=== PATIENT | male | born 1980 | race Caucasian/White ===

== ENCOUNTER → 2018-11-06 | Day surgery (SDC) | payer OTHER ==
[~2018-11-06] MED LIST: DICYCLOMINE HCL20 MG PO; FENTANYL CITRATE/PF 100MCG/2 ML INJ ONE; HYOSCYAMINE 0.125 MG TAB ONE; MIDAZOLAM HCL 2 MG/2 ML VIAL ONE; MORPHINE SULFATE INJ 4 MG/ML INJ 1ML ONE; OMEPRAZOLE40 MG PO; PROPOFOL IV EMULSION 10 MG/ML 50 ML VIAL ONE
--- OUTSIDE RECORDS SUMMARY | 2018-11-06 11:04 | XMS REPORT | Summary of Care ---
Author Author [facility] - Health Organization [facility] - Health Address Unknown Phone Unavailable Care Team Providers Care Fur Liner Name Role Phone Pcp, Patient Does Not Have A PCP Reason for Referral * (ROSANNA) Referred By Contact Referred To Contact Status Reason Specialty Diagnoses / Procedures Nani Solis, EDITOR MAP [address] [place] [address] New Request IM-GASTROENTEROL Diagnoses OGY Epigastric pain Acute gastritis without hemorrhage, unspecified gastritis type P rocedures Discharge Follow-Up: Specialty Service IM-GASTROENTEROLOG Y; 3-5 Days * MRI/CAT Scan (STAT) Referred By Contact Referred To Contact Status Reason Specialty Diagnoses / Procedures IrmaNani, EDITOR MAP [address] [place] [address] New Request Diagnostic Diagnoses Radiology Epigastric pain P rocedures CT ABDOMEN PELVIS W CONTRAST * MRI/CAT Scan (STAT) Referred By Contact Referred To Contact Status Reason Specialty Diagnoses / Procedures IrmaJoselineise, EDITOR MAP [address] [place] [address] New Request Diagnostic Diagnoses Radiology Epigastric pain P rocedures CT ABDOMEN PELVIS W CONTRAST * Radiology Services (STAT) Referred By Contact Referred To Contact Status Reason Specialty Diagnoses / Procedures IrmaNani, EDITOR MAP [address] [place] [address] New Request Diagnostic Diagnoses Radiology Epigastric pain P rocedures Chest 2 Views * Radiology Services (STAT) Referred By Contact Referred To Contact Status Reason Specialty Diagnoses / Procedures IrmaNani, EDITOR MAP [address] [place] [address] New Request Diagnostic Diagnoses Radiology Epigastric pain P rocedures Chest 2 Views Reason for Visit * Reason Comments Shortness of Breath Chest Pain * Auth/Cert Referred By Contact Referred To Contact Status Reason Specialty Diagnoses / Procedures [facility] Emergency Dept [address] [place] [phone] Emergency Medicine Encounter Details Care Team Description Date Type Department Nani Solis, EDITOR MAP [address] [place] [address] [phone] Acute gastritis without hemorrhage, unspecified gastritis type (Primary Dx); Epigastric pain 10/01/2018 Emergency [facility]Emergency Department [address] [place] [phone] Allergies Comments Active Allergy Reactions Severity Noted Date Amoxicillin Swelling 10/01/2018 Codeine Swelling 10/01/2018 Sulfa (Sulfonamide Swelling 10/01/2018 Antibiotics) documented as of this encounter (statuses as of 10/01/2018) Medications End Date Status Medication Sig Dispensed Refills Start Date Active dicyclomine 20 mg Take 1 tablet 20 tablet 0 tabletIndications: Acute by mouth 4 9 gastritis without (four) times hemorrhage, unspecified daily as gastritis type needed for Abdominal pain. 10/31/2018 Active omeprazole 20 mg Take 1 30 capsule 0 capsuleIndications: Acute capsule by 9 gastritis without mouth daily hemorrhage, unspecified for 30 days. gastritis type documented as of this encounter (statuses as of 10/01/2018) Active Problems No known active problemsdocumented as of this encounter (statuses as of 10/01/2018) Social History Date Tobacco Use Types Packs/Day Years Used Never Assessed Sex Assigned at Date Recorded Not on file Industry Job Start Date Occupation Not on file Not on file Not on file Travel End Travel History Travel Start No recent travel history available. documented as of this encounter Last Filed Vital Signs Reading Time Taken Comments Vital Sign 107/75 10/01/2018 4:07 PM CDT Blood Pressure 55 10/01/2018 4:07 PM CDT Pulse 36.7 C (98.1 F) 10/01/2018 4:07 PM CDT Temperature 12 10/01/2018 4:07 PM CDT Respiratory Rate 100% 10/01/2018 4:07 PM CDT Oxygen Saturation - - Inhaled Oxygen Concentration 77.1 kg (170 lb) 10/01/2018 12:51 PM CDT Weight - - Height - - Body Mass Index documented in this encounter Discharge Instructions * Instructions* Nani Solis FNP - 10/01/2018 RECOMMEND FOLLOW-UP WITH A PRIMARY CARE PROVIDER OR SPECIALIST IN 2-5 DAYS, [facility]Y IF NO IMPROVEMENT IN SYMPTOMS. MAY FOLLOW-UP WITH A PROVIDER OF YOUR CHOICE, SUCH : 1. A PHYSICIAN OF YOUR CHOICE 2. [address] [place] [address]; 3. [facility], [address] [place] [address]; [phone] 1 OR, IF YOU WISH TO FOLLOW-UP WITHIN THE [facility], MAY TRY THESE OP TIONS (CLINIC APPOINTMENTS AVAILABLE ON ZILY-OO-AFXJ BASIS): 1. SCHEDULE AN APPOINTMENT ONLINE AT WWW[facility] 2. OR CALL THE [facility] AT OR 3. OR CALL YOUR [facility] PHYSICIAN'S OFFICE DIRECTLY IF YOU ARE ALREADY AN ESTABLISH ED [facility] PATIENT. RETURN TO ER FOR WORSENING OF SYMPTOMS. * Attachments The following attachments cannot be sent through Care Everywhere.* Gastritis (Adult) (Mongolian) documented in this encounter Plan of Treatment Health Maintenance Due Date Last Done Comments VARICELLA VACCINES (1 of 1993 2 - 13+ 2-dose series) DTaP,Tdap,and Td Vaccines 08/28/1999 (1 - Tdap) INFLUENZA VACCINE (#1) 2018 PNEUMOCOCCAL 0-64 YEARS Aged Out No longer eligible based COMBINED SERIES on patient's age to complete this topic documented as of this encounter Procedures Comments Procedure Name Priority Date/Time Associated Diagnosis CT ABDOMEN PELVIS W STAT 10/01/2018 Epigastric pain CONTRAST 3:29 PM CDT CBC WITH DIFFERENTIAL STAT 10/01/2018 Epigastric pain 2:30 PM CDT N-TERMINAL PRO-BNP STAT 10/01/2018 Epigastric pain 2:30 PM CDT CBC WITH DIFF Routine 10/01/2018 Epigastric pain 2:30 PM CDT BASIC METABOLIC PANEL STAT 10/01/2018 Epigastric pain (NA, K, CL, CO2, GLUCOSE, 2:30 PM CDT BUN, CREATININE, CA) HEPATIC FUNCTION PANEL STAT 10/01/2018 Epigastric pain (79615) (ALB,T.PRO,BILI 2:30 PM CDT T,BU/BC,ALT,AST,ALK PHOS) TROPONIN I STAT 10/01/2018 Epigastric pain 2:30 PM CDT LIPASE STAT 10/01/2018 Epigastric pain 2:30 PM CDT URINALYSIS STAT 10/01/2018 Epigastric pain 2:26 PM CDT XR CHEST 2 VW STAT 10/01/2018 Epigastric pain 1:57 PM CDT EKG-12 LEAD STAT 10/01/2018 12:58 PM CDT documented in this encounter Results * CT ABDOMEN PELVIS W CONTRAST (10/01/2018 3:29 PM CDT) Specimen Impressions Performed At Right lower lobe supradiaphragmatic focal consolidation, likely represent PACS/VR/DOSE clearing pneumonia. Follow-up in 6-8 weeks after appropriate treatment is recommended. Shana Vaca MD., have reviewed this study and agree with the above report. Narrative Performed At * * * * * * * * ORIGINAL REPORT * * * * * * * * PACS/VR/DOSE EXAM: CT ABDOMEN AND PELVIS WITH CONTRAST HISTORY: Abd infection (incl peritonitis) COMPARISON: None. TECHNIQUE AND FINDINGS: Contiguous axial imaging from the level of the lung bases through the pubic symphysis was performed after the uncomplicated administration of 120 cc of intravenous Omnipaque contrast. Coronal and sagittal reconstructions were obtained.Auto mA and/or iterative reconstruction were used to reduce radiation dose. FINDINGS: LOWER THORAX: Right lower lobe supradiaphragmatic airspace opacity is seen measuring 1.1 cm.No cardiomegaly. LIVER: Approximately 7 mm low-density lesion in segment 6 is too small to be characterized by CT scan, probably small cyst. Normal contour. GALLBLADDER AND BILIARY TREE: No gallbladder wall thickening. No biliary dilatation. PANCREAS: No ductal dilation or masses. SPLEEN: No splenomegaly. ADRENAL GLANDS: No adrenal nodules. KIDNEYS: No hydronephrosis, stones, or masses. PELVIS/BLADDER: Unremarkable. GI TRACT: No dilation or wall thickening. The visualized portions of the appendix are normal. VESSELS: Unremarkable. LYMPH NODES: No lymphadenopathy. PERITONEUM AND RETROPERITONEUM: No free air or fluid. BONES AND SOFT TISSUES: No suspicious lytic or sclerotic bony lesions. A 7 mm right iliac bone island is noted (3:92). Procedure Note [facility], Radiant Results Inft User - 10/01/2018 4:03 PM CDT * * * * * * * * ORIGINAL REPORT * * * * * * * * EXAM: CT ABDOMEN AND PELVIS WITH CONTRAST HISTORY: Abd infection (incl peritonitis) COMPARISON: None. TECHNIQUE AND FINDINGS: Contiguous axial imaging from the level of the lung bases through the pubic symphysis was performed after the uncomplicated administration of 120 cc of intravenous Omnipaque contrast. Coronal and sagittal reconstructions were obtained. Auto mA and/or iterative reconstruction were used to reduce radiation dose. FINDINGS: LOWER THORAX: Right lower lobe supradiaphragmatic airspace opacity is seen measuring 1.1 cm. No cardiomegaly. LIVER: Approximately 7 mm low-density lesion in segment 6 is too small to be characterized by CT scan, probably small cyst. Normal contour. GALLBLADDER AND BILIARY TREE: No gallbladder wall thickening. No biliary dilatation. PANCREAS: No ductal dilation or masses. SPLEEN: No splenomegaly. ADRENAL GLANDS: No adrenal nodules. KIDNEYS: No hydronephrosis, stones, or masses. PELVIS/BLADDER: Unremarkable. GI TRACT: No dilation or wall thickening. The visualized portions of the appendix are normal. VESSELS: Unremarkable. LYMPH NODES: No lymphadenopathy. PERITONEUM AND RETROPERITONEUM: No free air or fluid. BONES AND SOFT TISSUES: No suspicious lytic or sclerotic bony lesions. A 7 mm right iliac bone island is noted (3:92). IMPRESSION Right lower lobe supradiaphragmatic focal consolidation, likely represent clearing pneumonia. Follow-up in 6-8 weeks after appropriate treatment is recommended. Clifford Vaca MD., have reviewed this study and agree with the above report. Performing Organization Address City/State/Zipcode Phone Number PACS/VR/DOSE * CBC WITH DIFFERENTIAL (10/01/2018 2:30 PM CDT) WBC 6.39 4.20 - 10.70 [facility] 10*3/L [facility] RBC 4.83 4.26 - 5.52 10*6/L [facility] HGB 15.2 12.2 - 16.4 g/dL [facility] HCT 44.1 38.4 - 49.3 % [facility] MCV 91.3 81.7 - 95.6 fL [facility] MCH 31.5 26.1 - 32.7 pg [facility] MCHC 34.5 31.2 - 35.0 g/dL [facility] RDW-SD 40.6 38.5 - 51.6 fL [facility] RDW-CV 12.0 (L) 12.1 - 15.4 % [facility] PLT 228 150 - 328 10*3/L [facility] MPV 9.3 (L) 9.8 - 13.0 fL [facility] NRBC/100 WBC 0.0 0.0 - 10.0 /100 WBCs [facility] NRBC x10^3 <0.01 10*3/L [facility] GRAN MAT (NEUT) 62.4 % [facility] % [facility] IMM GRAN % 0.20 % [facility] LYMPH % 26.6 % [facility] MONO % 8.1 % [facility] EOS % 2.2 % [facility] BASO % 0.5 % [facility] GRAN MAT 3.99 1.99 - 6.95 10*3/uL [facility] x10^3(ANC) [facility] IMM GRAN x10^3 <0.03 0.00 - 0.06 10*3/uL [facility] LYMPH x10^3 1.70 1.09 - 3.23 10*3/uL [facility] MONO x10^3 0.52 0.36 - 1.02 10*3/uL [facility] EOS x10^3 0.14 0.06 - 0.53 10*3/uL [facility] BASO x10^3 0.03 0.01 - 0.09 10*3/uL [facility] Specimen Blood - VENOUS Performing Organization Address City/State/Zipcode Phone Number [facility] CLIA: [id number], [address] [place] [phone] [facility] * N-TERMINAL PRO-BNP (10/01/2018 2:30 PM CDT) NT-proBNP 287 (H) <=125 pg/mL [facility] Specimen Blood - VENOUS Narrative Performed At Biotin has been reported to cause a negative bias, interpret results relative to [facility] patient's use of biotin. [facility] Performing Organization Address City/State/Zipcode Phone Number [facility] CLIA: [id number], [address] [place] [phone] [facility] * Troponin I (10/01/2018 2:30 PM CDT) TROPONIN I 0.002 <=0.034 ng/mL [facility] Specimen Blood - VENOUS Narrative Performed At Equal or Less than 0.034 ng/ml---Normal [facility] Note: Cardiac troponin begins to rise 3-4 hours after the onset of ischemia. [facility] Repeat in 4-6 hours if the sample was drawn within 3-4 hours of the onset of the [place] symptom and found normal. Between 0.035 and 0.120 ng/mL--- Borderline. Questionable myocardial injury or necrosis Note: Serial measurement may be necessary to confirm or exclude the diagnosis of myocardial injury or necrosis; Clinical correlation (symptoms, EKGs, imaging studies, and others) required; Repeat in 4-6 hours if clinically indicated. Equal or Higher than 0.121 ng/mL---Abnormal. Myocardial Injury or Necrosis Likely Biotin has been reported to cause a negative bias, interpret results relative to patient's use of biotin. Performing Organization Address City/State/Zipcode Phone Number [facility] CLIA: [id number], [address] [place] [phone] [facility] * Lipase Serum (10/01/2018 2:30 PM CDT) Pathologist [facility] LIPASE 122 0 - 220 U/L [facility] Specimen Blood - VENOUS Performing Organization Address [facility] Phone Number [facility] CLIA: [id number], [address] [place] [phone] [facility] * Hepatic Function Panel (ALB, T.PRO, BILI T, BU/BC, ALT, AST, ALK PHOS) (10/01/2018 2:30 PM CDT) TOTAL BILI 0.5 0.1 - 1.1 mg/dL [facility] BILI UNCON 0.4 0.1 - 1.1 mg/dL [facility] BILI CONJ 0.0 0.0 - 0.3 mg/dL [facility] T PROTEIN 7.7 6.3 - 8.2 g/dL [facility] ALBUMIN 4.6 3.5 - 5.0 g/dL [facility] ALK PHOS 59 34 - 122 U/L [facility] ALT(SGPT) 27 9 - 51 U/L [facility] AST(SGOT) 24 13 - 40 U/L [facility] Specimen Blood - VENOUS Performing Organization Address City/[facility] Cent[facility]ode Phone Number [facility] CLIA: [id number], [address] [place] [phone] [facility] * Basic Metabolic Panel (NA, K, CL, CO2, GLUCOSE, BUN, CREATININE, CA) (10/01/2018 2:30 PM CDT) NA 144 135 - 145 mmol/L [facility] K 4.3 3.5 - 5.0 mmol/L [facility] CL 105 98 - 108 mmol/L [facility] CO2 TOTAL 28 23 - 31 mmol/L [facility] AGAP 11 2 - 16 [facility] BUN 11 7 - 23 mg/dL [facility] GLUCOSE 90 70 - 110 mg/dL [facility] CREATININE 0.82 0.60 - 1.25 mg/dL [facility] CALCIUM 9.8 8.6 - 10.6 mg/dL [facility] eGFR 105.1 mL/min/1.73m2 [facility] Calculation [facility] (Non-[facility] [place]) eGFR 127.4 mL/min/1.73m2 [facility] Calculation [facility] ([facility] [place]) Specimen Blood - VENOUS Narrative Performed At [facility] of Glomerular Filtration Rate (GFR) and Staging of Kidney Disease* [facility] + + + + [facility] | GFR (mL/min/1.73 m2)| With Kidney Damage|Without Kidney Damage CAMPUS + + + + |>90|Stage one| Normal + + + + |60-89|Stage two| Decreased GFR + + + + |30-59|Stage three| Stage three + + + + |15-29|Stage four | Stage four + + + + |<15 (or dialysis)|Stage five | Stage five + + + + *Each stage assumes the associated GFR level has been in effect for at least three months.Stages 1 to 5, with or without kidney disease, indicate chronic kidney disease. Notes: Determination of stages one and two (with eGFR >59mL/min/1.73 m2) requires estimation of kidney damage for at least three months as defined by structural or functional abnormalities of the kidney, manifested by either: Pathological abnormalities or Markers of kidney damage (including abnormalities in the composition of the blood or urine or abnormalities in imaging tests). Performing Organization Address City/State/Zipcode Phone Number [facility] CLIA: [id number], [address] [place] [address] [facility] * Urinalysis (10/01/2018 2:26 PM CDT) APPEARANCE Clear Clear [facility] COLOR Straw (A) Yellow [facility] PH 7.0 4.8 - 8.0 [facility] SP GRAVITY 1.009 1.003 - 1.030 [facility] GLU U QUAL Normal Normal [facility] BLOOD [facility] Negative [facility] KETONES Negative Negative [facility] PROTEIN Negative Negative [facility] UROBILIN Normal Normal [facility] BILIRUBIN Negative Negative [facility] NITRITE Negative Negative [facility] LEUK JUSTIN Negative Negative [facility] RBC/HPF 2 0 - 3 HPF [facility] WBC/HPF 1 0 - 5 HPF [facility] BACTERIA Negative Negative [facility] MUCOUS Slight (A) Negative LPF [facility] SQ EPITH 1 <=2 HPF [facility] Specimen Urine - URINE, CLEAN CATCH Performing Organization Address City/State/Zipcode Phone Number [facility] CLIA: [id number], [address] [place] [phone] [facility] * Chest 2 Views (10/01/2018 1:57 PM CDT) Specimen Impressions Performed At No acute intrathoracic abnormality. PACS/VR/DOSE Praveen Vaca MD., have reviewed this study and agree with the above report. Narrative Performed At * * * * * * * * ORIGINAL REPORT * * * * * * * * PACS/VR/DOSE PROCEDURE: XR CHEST 2 VW CLINICAL INDICATION: shortness of breath, rececnt dx of PNA COMPARISON: None FINDINGS: The lungs are clear. No pleural effusion or pneumothorax is seen. The heart is normal in size. No acute bony abnormality. Procedure Note [facility], Radiant Results Inft User - 10/01/2018 2:27 PM CDT * * * * * * * * ORIGINAL REPORT * * * * * * * * PROCEDURE: XR CHEST 2 VW CLINICAL INDICATION: shortness of breath, rececnt dx of PNA COMPARISON: None FINDINGS: The lungs are clear. No pleural effusion or pneumothorax is seen. The heart is normal in size. No acute bony abnormality. IMPRESSION No acute intrathoracic abnormality. I, Marcus Agosto MD., have reviewed this study and agree with the above report. Performing Organization Address City/State/Zipcode Phone Number PACS/VR/DOSE documented in this encounter Visit Diagnoses Diagnosis Acute gastritis without hemorrhage, unspecified gastritis type - Primary Epigastric pain Abdominal pain, epigastric documented in this encounter Administered Medications Action Date Dose Rate Site Medication Order [facility] [place] 10/01/2018 3:00 PM CDT 30 mg ketorolac (TORADOL) injection 30 mg Given 30 mg, Slow IV Push, Q6H, 4 doses, First dose on Sat10/01/18 at 1800, Last dose on Sat10/02/18 at 1200, Routine, fast food crew member approving Restricted medication: TULIO ROMERO Action Date Dose Rate Site Medication Order [facility] [place] 10/01/2018 3:08 PM CDT 20 mg Left Dorsogluteal-IM dicyclomine (BENTYL) injection 20 mg Given 20 mg, Intramuscular, ONCE, 1 dose, Sat10/01/18 at 1600, [facility] 10/01/2018 2:57 PM CDT 20 mg famotidine (PEPCID (PF)) injection 20 mg Given 20 mg, Slow IV Push, ONCE, 1 dose, Sat10/01/18 at 1600, [facility] 10/01/2018 3:20 PM CDT 100 mL iohexol (OMNIPAQUE 350 BULK-100 mL) Given injection 100 mL 100 mL, Intravenous, ONCE, 1 dose, Sat10/01/18 at 1515, Routine 10/01/2018 2:56 PM CDT 15 mL maalox:diphenhydrAMINE:lidocaine2 Given %viscous 1:1:1: suspension (COMPOUNDED) 15 mL, Oral, ONCE, 1 dose, Sat10/01/18 at 1600, Routine 10/01/2018 2:56 PM CDT 1,000 mL 999 mL/hr NaCl 0.9% (NS) bolus infusion 1,000 mL New Bag at 999 mL/hr, 1,000 mL, IV Infusion, ONCE, 1 dose, Sat10/01/18 at 1600, STAT 10/01/2018 2:58 PM CDT 4 mg ondansetron (ZOFRAN (PF)) injection 4 mg Given 4 mg, Slow IV Push, ONCE, 1 dose, Sat10/01/18 at 1600, ROSANNA documented in this encounter"
--- OUTSIDE RECORDS SUMMARY | 2018-11-06 11:04 | XMS REPORT | Encounter Summary ---
Author Organization Unknown Address [address] [place] [address] Phone [phone] Reason for Visit Medical Complaint; tongue sensations, sore throat, tooth pain Instructions 1. Dental caries clindamycin 300 mg capsule 2. Gingivitis chlorhexidine gluconate 0.12 % mouthwash rapid strep group A, throat Discussion Note: None recorded. Patient educational handouts: No information available. Plan of Care Patient Instructions Take meds as prescribed. Follow up with dentist for possible tooth extraction. Reminders Provider Appointments None recorded. Lab Rapid Strep Group a, Throat 10/20/2015 [facility] Referral None recorded. Procedures None recorded. Surgeries None recorded. Imaging None recorded. Medications Name Start Date chlorhexidine gluconate 0.12 % mouthwash Swish and spit 15ml BID x 10 days clindamycin 300 mg capsule Take 1 capsule every 8 hours by oral route as directed for 10 days. Medications Administered None recorded. Vitals Height Weight BMI Blood Pressure 6 ft 4 in 195 lbs 23.7 120/78 Lab Results Date Name Result Description Value Range Status Rapid Strep Group a, Throat Result negative Swab Location Left and Right tonsillar pillars Allergies Name Reaction Severity Onset Amoxicillin Itching Severe Bactrim Itching Severe Vicodin Anaphylaxis Severe Problems Name Status Onset Date Source Infestation by Sarcoptes Scab[place] Active Encounter Internal Hemorrhoids Active Encounter Acute Pharyngitis Active Encounter Allergic Rhinitis Active Encounter Dental Caries Active Encounter Gingivitis Active Encounter Open Wound of Knee Active Encounter Infected Insect Bite Active Encounter Wound Abscess Active Encounter Procedures None recorded. Vaccine List None recorded. Social History Smoking Status Former Smoker Past Encounters 10/20/2015 Dental Caries; Gingivitis CRISTOPHER Xavier: [address] [facility], [place] [address], Ph. History of Present Illness Throat-Oral Complaint Reported By: Patient HPI: Location: throat, dental. Quality: sore throat, feels 50 percent of normal. Duration: 3 days. Onset/Timing: sudden. Context: no sick contacts, no foreign travel, non-smoker. Modifying factors: OTC medication. Associated Symptoms: no sputum production, no shortness of breath, no wheezing, no change in number of pillows needed to sleep at night, no sweats, no significant weight gain, no significant weight loss, no morning cough, no vomiting, no diarrhea, no rash, no nausea, sore throat Review of Systems Basic Reported By: Patient Constitutional: Constitutional: no fever Eyes: Eyes: no eye complaints Zquw-Kfug-Ttroo-Throat: Ears: no ear complaints. Nose: no nose/sinus problems. Mouth/Throat: no bleeding gums, no mouth complaints, sore throat, teeth abnormalities Cardiovascular: Cardiovascular: no chest pain, no shortness of breath, no known heart murmur Respiratory: Respiratory: no cough, no wheezing, no shortness of breath Gastrointestinal: Gastrointestinal: no abdominal pain, no vomiting / diarrhea Genitourinary: Genitourinary: no urinary complaints, no discharge Musculoskeletal: Musculoskeletal: no muscle aches, no muscle weakness, no arthralgias/joint pain, no back pain Skin: Skin: no abnormal / changing mole, no jaundice, no rashes Neurologic: Neurologic: no loss of consciousness, no weakness, no numbness, no seizures, no dizziness, no headaches Physical Exam Adult Basic, Adult Male Complete Constitutional: General Appearance: healthy-appearing, well-nourished, well-developed. Level of Distress: NAD. Ambulation: ambulating normally Psychiatric: Mental Status: active and alert. Orientation: to time, to place, to person Eyes: Lids and Conjunctivae: non-injected, no discharge, no pallor. Pupils: PERRLA. Corneas: grossly intact. EOM: EOMI. Lens: clear. Sclerae: non-icteric. Vision: acuity grossly intact, peripheral vision grossly intact Nlc-Mhyu-Mdfau-Throat: Ears: no lesions on external ear, no outer ear tenderness, EACs clear, TMs clear. Hearing: no hearing loss. Nose: no lesions on external nose, nares patent, no septal deviation, nasal passages clear, no sinus tenderness, no nasal discharge. Lips, Teeth, and Gums: no mouth or lip ulcers, no bleeding gums, gingival erythema, poor dentition. Oropharynx: moist mucous membranes, no erythema, no exudates, tonsils not enlarged Neck: Neck: supple, trachea midline, no masses, FROM. Lymph Nodes: no cervical LAD, no supraclavicular LAD. Thyroid: no enlargement, non-tender, no nodules Lungs: Respiratory effort: no dyspnea, no tachypnea, no use of accessory muscles, no intercostal retractions. Auscultation: breath sounds normal, good air movement Cardiovascular: Heart Auscultation: RRR, no murmurs
--- OUTSIDE RECORDS SUMMARY | 2018-11-06 11:04 | XMS REPORT ---
Author Author [facility] Address Unknown Phone Unavailable Care Team Providers Care Hide Sorter Name Role Phone Unavailable Unavailable Payers Payer Name Policy Type Policy Number Effective Date Expiration Date Problems This patient has no known problems. Allergies, Adverse Reactions, Alerts Allergy Name Allergy Type Status Severity Reaction(s) Onset Date Inactive Date Treating Clinician Comments codeine DA Active SV 2016-05-22 00:00:00 hydrocodone DA Active U 2016-05-22 00:00:00 acetaminophen DA Active SV 2016-05-22 00:00:00 sulfamethoxazole DA Active SV 2016-05-22 00:00:00 trimethoprim DA Active SV 2016-05-22 00:00:00 amoxicillin DA Active U 2016-05-22 00:00:00 Medications This patient has no known medications. Results Test Description Test Time Test Comments Text Results Atomic Results Result Comments HEPATIC FUNCTION PANEL 2018-09-29 11:27:00 TOTAL PROTEIN (test code=PROT) 7.8 g/dL 6.4-8.2 ALBUMIN (test code=ALB) 4.00 g/dL 3.4-5.0 BILIRUBIN TOTAL (test code=BILT) 0.30 mg/dL 0.0-1.0 BILIRUBIN DIRECT (test code=BILD) < 0.10 MG/DL 0.0-0.30 BILIRUBIN INDIRECT (test code=BILIND) 0.20 MG/DL SGOT/AST (test code=AST) 8 IUnit/L 15-37 SGPT/ALT (test code=ALT) 18 IUnit/L 15-65 ALKALINE PHOSPHATASE TOTAL (test code=ALKP) 67 IUnit/L 20-125 [id number] 11:27:00* Test Item Value Reference Range Comments LIPASE (test code=LIP) 177 IUnit/L 73-393 - CT ABD PELVIS [id number] 11:25:00 Name: JUSTEN BRIONES [facility] : 1980 Age/S: 38 / M [address] [place] [address] Unit #: [id number] Loc: NIMISHA Mcelroy [address] Phys: Shakir White SANDHYA Acct: [id number] Dis Date: Status: REG ER PHONE #: [phone] Exam Date: 09/29/2018 1101 FAX #: [phone] Reason: epigastric pain EXAMS: CPT CODE: [id number] CT ABD PELVIS W/CONT 63760 CT SCAN OF THE ABDOMEN AND PELVIS WITH CONTRAST: HISTORY: Chronic epigastric abdominal pain COMPARISON EXAM(S): Previous abdominal CT scan of November 2008 TECHNIQUE: Axial images were obtained of the abdomen and pelvis from the domes of the diaphragm to the symphysis pubis following intravenous injection of 100 ml's Isovue and oral administration of 10 ml's Gastrografin diluted with water. Coronal and sagittal reconstructions were generated. DOSE: CT imaging performed at this location utilizes radiation dose optimization technique which includes one or more of the followin) Automated exposure control; 2) Adjustment of the mA and/or kV according to patient's size; 3) Use of iterative reconstruction techniques. DLP (mGy-cm): 191 FINDINGS: Patchy subpleural infiltrate is identified at the right lung base, abutting the right hemidiaphragm. This appears to be alveolar type infiltrate and is suspicious for early pneumonia. No pleural fluid. The lungs are not completely evaluated on this exam. Several, similar, scattered, less than 1 cm low-density lesions are noted in the hepatic parenchyma. Several of these were present in 2008. Density analysis on the larger lesion suggests that these represent cysts. The smaller lesions are too small for accurate density analysis. No suspicious hepatic masses. The pancreas, spleen, adrenal glands and kidneys are within normal limits. No evidence of nephrolithiasis or hydronephrosis. The gallbladder is partially collapsed. No per icholecystic edema identified. The cecum is situated in the right side of the pelvis. The appendix is not well seen but there is no e vidence of appendicitis. There is no evidence of proximal dilatation and gas and fecal material is identified in the colon. This likely represents a transient finding or mild ileus effect. SKELETAL: Bone windows show no suspicious blastic or lytic lesions. A benign-appearing s clerotic bone island is noted in the right ilium. Degenerative changes ar e noted at the lumbosacral junction. No acute bony abnormalities. PAGE 1 Signed Report (CONTINUED) Name: JUSTEN BRIONES [facility] [place] : 1980 Age/S: 38 / M [address] [place] [address] Unit #: [id number] Loc: [place] [address] Phys: Christopher,Pet er PA Acct: [id number] Di s Date: Status: REG ER PHONE #: 1 [phone] Exam Date: 09/29/2018 1101 FAX #: Reason: epigastric pain EXAMS: CPT CODE: [id number] CT ABD PELVIS W/CONT 99512 <Continued> IMPRESSION: 1. Patchy, alveolar right basilar infiltrate worrisome for early right lower lobe pneumonia. 2. Stable and benign- appearing hepatic lesions, likely representing hepatic cysts. 3. No evidence of appendicitis. 4. Single loop of fluid-filled small b owel in the inferior abdomen and superior pelvis may be transient or rep resent a localized ileus effect. There is no evidence of bowel obstruct ion. 5. Otherwise unremarkable examination of the abdomen and pelvis. SL:01 Electro nically Signed by Zeferino Parra on 2018 at 1125 Reported and signed by: Pankaj Parra M.D. CC: Shakir ARTHUR; Jameson Hillman MD; Justo Raya MD Technologist:Paulina Gr, RT(R)(CT); Ro CTDI: DL P: Trnscb Date/Time: 09/29/2018 (1125) tHESHAM O rig Print D/T: S: 09/29/2018 (1128) PAGE 2 Signed Re port URINALYSIS [id number] 11:13:00* Test Item Value Reference Range Comments UA COLOR (test code=COLU) YELLOW YEL/STRAW UA APPEARANCE (test code=APPU) CLEAR CLEAR UA GLUCOSE DIPSTICK (test code=DGLUU) NEGATIVE NEGATIVE UA BILIRUBIN DIPSTICK (test code=BILU) NEGATIVE NEGATIVE UA KETONE DIPSTICK (test code=KETU) NEGATIVE NEGATIVE UA SPECIFIC GRAVITY (test code=SGU) 1.018 1.005-1.030 UA BLOOD DIPSTICK (test code=EDWINA) NEGATIVE NEGATIVE UA PH DIPSTICK (test code=SARAH) 6.0 5.0-7.0 UA PROTEIN DIPSTICK (test code=PROU) NEGATIVE NEGATIVE UA UROBILINIOGEN DIPSTICK (test code=URO) 0.2 mg/dL 0.2-1.0 UA NITRITE DIPSTICK (test code=ASHELY) NEGATIVE NEGATIVE UA LEUKOCYTE ESTERASE DIPSTICK (test code=LEUU) NEGATIVE NEGATIVE UA RBC (test code=RBCU) 0-3 RBC/HPF 0-3 UA WBC NO REFLEX (test code=WBCUCL) 0-3 WBC/HPF 0-3 UA BACTERIA (test code=BACU) NONE SEEN /HPF NONE SEEN UA SQUAMOUS CELLS (test code=SQU) NONE SEEN /HPF NONE SEEN UA MUCUS (test code=MUCU) 1+ /LPF NONE SEEN CBC W/AUTO [id number] 11:09:00* Test Item Value Reference Range Comments WHITE BLOOD CELL (test code=WBC) 5.37 x10 3/uL 4.5-11.0 RED BLOOD CELL (test code=RBC) 4.72 x10 6/uL 4.00-5.60 HEMOGLOBIN (test code=HGB) 14.8 g/dL 12.5-16.9 HEMATOCRIT (test code=HCT) 43.8 % 37.5-50.7 MEAN CELL VOLUME (test code=MCV) 92.8 fL 81.0-99.0 MEAN CELL HGB (test code=MCH) 31.4 pg 27.0-33.0 MEAN CELL HGB CONCETRATION (test code=MCHC) 33.8 g/dL 33.0-37.0 RED CELL DISTRIBUTION WIDTH CV (test code=RDW) 11.9 % 11.5-14.5 RED CELL DISTRIBUTION WIDTH SD (test code=RDW-SD) 41.4 fL 37.0-54.0 PLATELET COUNT (test code=PLT) 221 x10 3/uL 150-400 MEAN PLATELET VOLUME (test code=MPV) 9.4 fL 7.0-9.0 NEUTROPHIL % (test code=NT%) 61.2 % 56.0-77.0 IMMATURE GRANULOCYTE % (test code=IG%) 0.2 % 0.0-2.0 LYMPHOCYTE % (test code=LY%) 27.4 % 14.0-32.0 MONOCYTE % (test code=MO%) 7.4 % 4.8-9.0 EOSINOPHIL % (test code=EO%) 3.4 % 0.3-3.7 BASOPHIL % (test code=BA%) 0.4 % 0.0-2.0 NUCLEATED RBC % (test code=NRBC%) 0.0 % 0-0 NEUTROPHIL # (test code=NT#) 3.29 x10 3/uL 2.0-7.6 IMMATURE GRANULOCYTE # (test code=IG#) 0.01 x10 3/uL 0.00-0.03 LYMPHOCYTE # (test code=LY#) 1.47 x10 3/uL 1.0-3.8 MONOCYTE # (test code=MO#) 0.40 x10 3/uL 0.1-0.8 EOSINOPHIL # (test code=EO#) 0.18 x10 3/uL 0.0-0.2 BASOPHIL # (test code=BA#) 0.02 x10 3/uL 0.0-0.2 NUCLEATED RBC # (test code=NRBC#) 0.00 x10 3/uL 0.0-0.1 MANUAL DIFF REQUIRED (test code=MDIFF) NO CHEMISTRY 8 [id number] 10:51:00* Test Item Value Reference Range Comments ISTAT-SODIUM (test code=NAP) MMOL/L 134-147 ISTAT-POTASSIUM (test code=KP) MMOL/L 3.4-5.0 ISTAT-CHLORIDE (test code=CLP) MMOL/L 100-108 ISTAT CARBON DIOXIDE (test code=ISTAT-CO2) mmol/L 21-33 ISTAT CALCIUM IONIZED (test code=ISTAT-JAMAL) MG/DL 1.12-1.32 ISTAT-GLUCOSE (test code=GLUP) MG/DL 70-110 ISTAT-BUN (test code=BUNP) MG/DL 7-18 BEDSIDE CREATININE (test code=CREATBED) MG/DL 0.6-1.3 GLOMERULAR FILTRATION RATE POC (test code=GFRBED) 89 ML/MIN CHEMISTRY 8 [id number] 10:51:00* Test Item Value Reference Range Comments ISTAT-SODIUM (test code=NAP) 141 MMOL/L 134-147 ISTAT-POTASSIUM (test code=KP) 4.2 MMOL/L 3.4-5.0 ISTAT-CHLORIDE (test code=CLP) 104 MMOL/L 100-108 Performed by certified service station operator at [facility] ISTAT CARBON DIOXIDE (test code=ISTAT-CO2) 27.0 mmol/L 21-33 ISTAT CALCIUM IONIZED (test code=ISTAT-JAMAL) 1.20 MG/DL 1.12-1.32 ISTAT-GLUCOSE (test code=GLUP) 88 MG/DL 70-110 ISTAT-BUN (test code=BUNP) 13 MG/DL 7-18 BEDSIDE CREATININE (test code=CREATBED) 1.0 MG/DL 0.6-1.3 GLOMERULAR FILTRATION RATE POC (test code=GFRBED) 89 ML/MIN
--- OUTSIDE RECORDS SUMMARY | 2018-11-06 11:04 | XMS REPORT | Continuity of Care Document ---
Author Author [employer] Address Unknown Phone Unavailable Care Team Providers Care Solution Maker Name Role Phone [email or web address] Unavailable Unavailable Problems Problem Status Onset Date Classification Date Reported Comments Source Acute pharyngitis 07/28/2017 Problem 07/28/2017 [facility] Viral upper respiratory tract infection 07/28/2017 Problem 07/28/2017 [facility] Influenza-like symptoms 07/28/2017 Problem 07/28/2017 [facility] Infestation by Sarcoptes scabiei ho hominis Problem 10/20/2015 [facility] Internal hemorrhoids Problem 10/20/2015 [facility] Allergic rhinitis Problem 10/20/2015 [facility] Dental caries Problem 10/20/2015 [facility] Gingivitis Problem 10/20/2015 [facility] Open wound of knee Problem 10/20/2015 [facility] Infected insect bite Problem 10/20/2015 [facility] Wound abscess Problem 10/20/2015 [facility] Medications Medication Details Route Status Patient Instructions Ordering Provider Order Date Source Azithromycin 250 MG Oral Tablet azithromycin 250 mg tablet Take 2 TABLET EVERY DAY by oral route for 1 day. Then 1 tablet po daily x 4 days Active [facility] benzonatate 200 MG Oral Capsule benzonatate 200 mg capsule Take 1 capsule 3 times a day by oral route as needed. Active [facility] Lidocaine Hydrochloride 20 MG/ML Mucous Membrane Topical Solution Lidocaine Viscous 2 % mucosal solution Take 15 mL every 3 hours by oral route as needed. Active [facility] chlorhexidine gluconate 1.2 MG/ML Mouthwash chlorhexidine gluconate 0.12 % mouthwash Swish and spit 15ml BID x 10 days Active [facility] Clindamycin 300 MG Oral Capsule clindamycin 300 mg capsule Take 1 capsule every 8 hours by oral route as directed for 10 days. Active [facility] Allergies, Adverse Reactions, Alerts Substance Category Reaction Severity Reaction type Status Date Reported Comments Source Vicodin Anaphylaxis Severe Allergy to substance 09/28/2012 [facility] Amoxicillin Itching Severe Allergy to substance 07/18/2013 [facility] Bactrim Itching Severe Allergy to substance 07/18/2013 [facility] Immunizations No Data Provided for This Section Results Order Name Results Value Reference Range Date Interpretation Comments Source Influenza A negative 07/28/2017 [facility] Influenza B negative 07/28/2017 [facility] RESULT negative 07/28/2017 [facility] SWAB LOCATION Left and Right tonsillar pillars 07/28/2017 [facility] RESULT negative 10/20/2015 [facility] SWAB LOCATION Left and Right tonsillar pillars 10/20/2015 [facility] Pathology Reports No Data Provided for This Section Diagnostic Reports No Data Provided for This Section Consultation Notes No Data Provided for This Section Discharge Summaries No Data Provided for This Section History and Physicals No Data Provided for This Section Vital Signs Vital Sign Value Date Comments Source Diastolic (mm Hg) 78 07/28/2017 [facility] Height 76 07/28/2017 [facility] Systolic (mm Hg) 110 07/28/2017 [facility] Weight 195 07/28/2017 [facility] Diastolic (mm Hg) 78 10/20/2015 [facility] Height 76 10/20/2015 [facility] Systolic (mm Hg) 120 10/20/2015 [facility] Weight 195 10/20/2015 [facility] Encounters Location Location Details Encounter Type Encounter Number Reason For Visit Attending Provider ADM Date DC Date Status Source [place] - [facility] - [id number] CRISTOPHER Xavier: [address] [place] [address], Ph. [id number] Allyn Prieto 10/20/2015 [facility] [place] - [facility] [id number] Marcela Riojas, PERMIT REVIEW ASSISTANT-C: [address] [place] [address], Ph. [id number] Marcela Riojas 07/28/2017 [facility] Procedures No Data Provided for This Section Assessment and Plan No Data Provided for This Section Plan of Care No Data Provided for This Section Social History Social History Date Source Smoking Status Former Smoker 09/28/2012 [facility] Family History No Data Provided for This Section Advance Directives No Data Provided for This Section Functional Status No Data Provided for This Section
--- OUTSIDE RECORDS SUMMARY | 2018-11-06 11:04 | XMS REPORT | Encounter Summary ---
Author Organization Unknown Address [address] [place] [address] Phone [phone] Reason for Visit Medical Complaint Instructions 1. Viral upper respiratory tract infection benzonatate 200 mg capsule 2. Acute pharyngitis sore throat: care instructions rapid strep group A, throat Lidocaine Viscous 2 % mucosal solution azithromycin 250 mg tablet 3. Influenza-like symptoms rapid flu (A+B) Discussion Note Pt is in NAD; Verbalizes understanding of all instructions with no questions at this time. Plan of Care Patient Instructions Gargle and spit viscous lidocaine as needed for sore throat as directed. Take fluticasone as needed for congestion. Mcgregor one spray in each nostril twice a day. Take a warm, steamy shower, blow your nose thereafter, and spray in each nostril. Tilt your head up for about 10 seconds and breath through your mouth. Do not sniff or snort the medication in or else the medication will go to your throat and not be absorbed appropriately. Take Benzonatate for cough as directed. Take tylenol (acetaminophen) as per package for pain/fever/headache. If no improvement of symptoms in 2-3 days, start antibitiotics. Proper hydration and rest. Return to work/school if free of fever for 24-hrs. Do not share any utensils/cups, no kissing, recommend hand washing after coughing/sneezing/blowing nose and cover face when you do so. Take medications as prescribed. Follow up with your PCP within 2-3 days if symptoms worsen as discussed. Reminders Provider Appointments None recorded. Lab Rapid Strep Group a, Throat 07/28/2017 [facility] Rapid Flu (A+B) 07/28/2017 [facility] Referral None recorded. Procedures None recorded. Surgeries None recorded. Imaging None recorded. Medications Name Start Date azithromycin 250 mg tablet Take 2 TABLET EVERY DAY by oral route for 1 day. Then 1 tablet po daily x 4 days benzonatate 200 mg capsule Take 1 capsule 3 times a day by oral route as needed. Lidocaine Viscous 2 % mucosal solution Take 15 mL every 3 hours by oral route as needed. Medications Administered None recorded. Vitals Height Weight BMI Blood Pressure 6 ft 4 in 195 lbs 23.7 kg/m2 110/78 mm[Hg] Lab Results Date Name Specimen Result Interpretation Description Value Range Status Address Rapid Flu (A+B) Influenza a negative [facility]: [address] [place] [address] Influenza B negative [facility]: [address] [place] [address] Rapid Strep Group a, Throat Result negative [facility]: [address] [place] [address] Swab Location Left and Right tonsillar pillars [facility]: [address] [place] [address] Allergies Code Code System Name Reaction Severity Status Onset 723 RxNorm Amoxicillin Itching Severe Active 495271 RxNorm Bactrim Itching Severe Active 556458 RxNorm Vicodin Anaphylaxis Severe Active Problems Name Status Onset Date Source Acute Pharyngitis Active 07/28/2017 Viral Upper Respiratory Tract Infection Active 07/28/2017 Influenza-like Symptoms Active 07/28/2017 Procedures None recorded. Vaccine List None recorded. Social History Smoking Status Former Smoker Past Encounters 07/28/2017 Viral Upper Respiratory Tract Infection; Acute Pharyngitis; Influenza-like Symptoms Marcela Riojas, TYPESETTING MACHINE TENDER-C: [address] [place] [address], Ph. History of Present Illness Fqtitjl-Caovn-Qsg Reported By: Patient HPI: Quality: cannot identify. Duration: 3 days. Context: no ill contacts, no tick/insect bites, no recent travel, no new medications. Associated Symptoms: no fever/chills, no muscle aches, no rash, no lethargy, headache, cold symptoms, cough, nasal discharge; sore throat and chest congestion. Modifying Factors OTC medication Review of Systems Basic Reported By: Patient Constitutional: Constitutional: no fever Eyes: Eyes: no eye complaints Uvun-Cwss-Snhyc-Throat: Ears: no ear complaints. Nose: nose/sinus problems. Mouth/Throat: no bleeding gums, no mouth complaints, no teeth problems, sore throat Cardiovascular: Cardiovascular: no chest pain, no shortness of breath, no known heart murmur Respiratory: Respiratory: no wheezing, no shortness of breath, cough; chest congestion Gastrointestinal: Gastrointestinal: no abdominal pain, no vomiting / diarrhea Genitourinary: Genitourinary: no urinary complaints, no discharge Musculoskeletal: Musculoskeletal: no muscle aches, no muscle weakness, no arthralgias/joint pain, no back pain Skin: Skin: no abnormal / changing mole, no jaundice, no rashes Neurologic: Neurologic: no loss of consciousness, no weakness, no numbness, no seizures, no dizziness, headache Physical Exam Adult Basic, Adult Female Complete Reported By: Patient Constitutional: General Appearance: healthy-appearing, well-nourished, well-developed. Level of Distress: NAD. Ambulation: ambulating normally Psychiatric: Mental Status: active and alert. Orientation: to time, to place, to person Shz-Slyz-Ctfwc-Throat: Ears: no lesions on external ear, no outer ear tenderness, EACs clear, TMs clear. Hearing: no hearing loss. Nose: no lesions on external nose, nares patent, no septal deviation, nasal passages clear, no sinus tenderness, nasal discharge--rhinorrhea, post nasal drip. Lips, Teeth, and Gums: no mouth or lip ulcers, no bleeding gums, normal dentition. Oropharynx: moist mucous membranes, no exudates, tonsils not enlarged, erythema Neck: Lymph Nodes: no cervical LAD Lungs: Respiratory effort: no dyspnea, no tachypnea, no use of accessory muscles, no intercostal retractions. Auscultation: breath sounds normal Cardiovascular: Heart Auscultation: RRR, no murmurs Neurologic: Gait and Station: normal gait, normal station
[2018-11-06 16:00] VITALS: BP 117/78
[2018-11-06 18:00] LABS: WBC,FECAL (FECAL LACTOFERRIN) POSITIVE (NEGATIVE)
--- NOTE | 2018-11-06 22:17 | Operative Report ---
DATE OF PROCEDURE: 11/06/2018 SURGEON: Craig Li MD PROCEDURE: EGD with biopsies and esophageal dilatation and colonoscopy with polypectomy and biopsies. INDICATIONS FOR EGD: Upper abdominal pain, dysphagia. INDICATIONS FOR COLONOSCOPY: Diarrhea, chronic, intermittent. MEDICATIONS: The patient was done under MAC and please see anesthesiologist's note. PROCEDURE IN DETAIL: With the patient in left lateral decubitus position, a flexible fiberoptic Olympus gastroscope was introduced into the esophagus under direct visualization without any difficulty. There was some patchy erythema noted in distal esophagus. Minute tongues of velvety red mucosa were noted to extend proximally from the GE junction. Biopsies were obtained to rule out Gupta's. There was a mild stricture noted at the GE junction that was dilated to size 52-[place]. The scope was then advanced with ease into the stomach. Mucosa overlying the antrum and the body revealed some patchy erythema and [id number] edema and biopsies were obtained and sent to stain for H pylori. There was a minute polyp noted in the body of the stomach and that was partially excised with the cold biopsy forceps. The pylorus was of normal contour and shape was intubated with ease and the scope was advanced all the way to the second portion of the duodenum. The scope was then withdrawn slowly and the mucosa overlying the proximal second portion and the duodenal bulb were biopsied to rule out sprue. There was a prominent fold noted in the proximal aspect of the second portion of the duodenum and that was biopsied. The scope was then withdrawn back into the stomach and retroflexed. Mucosa overlying the fundus and cardia appeared to be within normal limits. The scope was then straightened out. The stomach was decompressed. The scope was subsequently withdrawn and the patient tolerated procedure well. IMPRESSION: 1. Distal esophagitis, mild. 2. Rule out Gupta's esophagus. 3. Esophageal stricture at GE junction dilated to size 52-[place]. 4. Gastritis, biopsied. Biopsies sent to stain for H pylori. 5. Gastric polyp, body, mid aspect, partially excised with the cold biopsy forceps. 6. Rule out sprue. 7. Prominent fold proximal second portion biopsied. PLAN: Follow up histology. Initiate Protonix 40 mg one p.o. q.a.m. a.c. The patient was then turned around. After adequate lubrication of the anal canal, a flexible fiberoptic Olympus colonoscope was inserted into the rectum with ease and advanced all the way to the cecum. Mucosa overlying the cecum appeared to be within normal limits. The ileocecal valve was intubated and the scope was advanced into the terminal ileum. The terminal ileum was diffusely ulcerated and multiple biopsies were obtained. The scope was then withdrawn back into the colon. It was then withdrawn slowly mucosa overlying the cecum, ascending colon and transverse colon appeared to be within normal limits. One polyp was removed per the cold biopsy forceps and two polyps were removed per snare electrocautery from the proximal descending colon. The left colon revealed some patchy mild inflammatory changes as well as the rectum and multiple random biopsies were obtained. Approximately 1 cm sessile polyp was removed per snare electrocautery from the distal descending colon and additional approximately 1 cm sessile polyp was removed per snare electrocautery from the sigmoid colon. The scope was then retroflexed into the distal rectum and moderate-sized internal hemorrhoids were noted, none of which was actively bleeding. The scope was then straightened out and it was subsequently withdrawn. The patient tolerated the procedure well. IMPRESSION: 1. Ulcerated terminal ileum, biopsied. 2. Descending colon polyps x3, one removed per cold biopsy forceps and two per snare electrocautery. 3. Mild patchy left-sided colitis. 4. Distal descending colon approximately 1 cm polyp removed per snare electrocautery. 5. Sigmoid colon polyp, snared. 6. Proctitis, mild, biopsied. 7. Internal hemorrhoids, none actively bleeding. PLAN: Follow up histology. Follow up stool studies. Check IBD panel, sedimentation rate, and CRP. Initiate Visbiome one p.o. b.i.d. and Bentyl 10 mg one p.o. t.i.d. MD ROSSY Granger/SORAYA /[id number]
[2018-11-07 11:40] LABS: C DIFFICILE TOXIN A&B AMP PROB NEGATIVE (NEGATIVE)
== END | disposition home or self-care (01) ==
LOC: OR 11:02
PROVIDERS: ATTEND Internal Medicine Gastroenterology
DX: K51.50 Left sided colitis without complications (principal); D12.4 Benign neoplasm of descending colon; D12.5 Benign neoplasm of sigmoid colon; K31.7 Polyp of stomach and duodenum; K29.70 Gastritis, unspecified, without bleeding; K22.2 Esophageal obstruction; K20.9 Esophagitis, unspecified; K44.9 Diaphragmatic hernia without obstruction or gangrene; K31.89 Other diseases of stomach and duodenum; K22.8 Other specified diseases of esophagus; K62.89 Other specified diseases of anus and rectum; K64.8 Other hemorrhoids; F41.9 Anxiety disorder, unspecified; Z88.6 Allergy status to analgesic agent; Z88.1 Allergy status to other antibiotic agents; Z88.0 Allergy status to penicillin; Z87.891 Personal history of nicotine dependence
CPT/HCPCS: 36415; 43239; 43450; 45380; 45385; 83630; 83993; 85651; 86140; 86256; 86671; 87045; 87177; 87328; 87493; J2250; J2270; J2704; J3010; 45378; 45384

== ENCOUNTER → 2021-03-23 | Day surgery (SDC) | payer OTHER ==
[~2021-03-23] MED LIST changes: -FENTANYL CITRATE/PF 100MCG/2 ML INJ ONE; -HYOSCYAMINE 0.125 MG TAB ONE; +LIDOCAINE HCL 2% LOCAL INJ 5 ML SDV VIAL INJ ONE; -MORPHINE SULFATE INJ 4 MG/ML INJ 1ML ONE; +PROPOFOL IV EMULSION 10 MG/ML 20 ML VIAL ONE; -PROPOFOL IV EMULSION 10 MG/ML 50 ML VIAL ONE
[2021-03-23 08:20] VITALS: BP 92/65
== END | disposition home or self-care (01) ==
LOC: ENDO 07:20
PROVIDERS: ATTEND Internal Medicine Gastroenterology
DX: K21.00 Gastro-esophageal reflux disease with esophagitis, without bleeding (principal); K29.70 Gastritis, unspecified, without bleeding; Z86.010 Personal history of colon polyps; Z88.6 Allergy status to analgesic agent; Z88.1 Allergy status to other antibiotic agents; Z88.0 Allergy status to penicillin; Z88.2 Allergy status to sulfonamides; Z01.810 Encounter for preprocedural cardiovascular examination; Z01.812 Encounter for preprocedural laboratory examination; Z20.822 Contact with and (suspected) exposure to COVID-19
CPT/HCPCS: 43239; 43450; 88305; 88312; 93005; C9113; J2001; J2250; J2704; U0002